=== PATIENT | female | born 1990 | race Hispanic/Latino ===

== ENCOUNTER → 2022-01-10 | Outpatient (CLI) | payer OTHER, MEDICARE ==
[~2022-01-10] MED LIST: GADOTERATE MEGLUMINE 10 MMOL/20 ML VIAL IV ONE
== END | disposition home or self-care (01) ==
LOC: RAH 07:44
PROVIDERS: ATTEND Internal Medicine Medical Oncology
DX: N60.21 Fibroadenosis of right breast (principal)
CPT/HCPCS: C8908; A9575; 77049

== ENCOUNTER 2022-03-11 13:32 | Emergency (ER) | payer OTHER, MEDICARE ==
[~2022-03-11] VITALS: Ht 170.2 cm; Wt 117.9 kg
[2022-03-11 15:11] VITALS: BP 126/77
[2022-03-11 16:01] LABS: APPEARANCE,URINE CLEAR (CLEAR); BILIRUBIN,URINE NEGATIVE (NEGATIVE); COLOR,URINE LIGHT-YELLOW (YELLOW); GLUCOSE, URINE (UA) 50 mg/dL (NEGATIVE); KETONES,URINE NEGATIVE (NEGATIVE); LEUKOCYTE ESTERASE ,URINE 75 Leu/uL (NEGATIVE); NITRATE,URINE NEGATIVE (NEGATIVE); OCCULT BLOOD,URINE NEGATIVE (NEGATIVE); PROTEIN,URINE NEGATIVE (NEGATIVE); UROBILINOGEN,URINE 0.2 mg/dL (0.2-1.0)
[2022-03-11] MEDS: 0.9% NACL 500ML IV.SOLN 500 ML IV ONE (16:05)
[2022-03-11] MEDS: KETOROLAC 15MG/ML VIAL (15MG/ML) IV ONE (16:05)
[2022-03-11] MEDS: ORPHENADRINE CITRATE 30 MG/ML ML IVP ONE (16:05)
[2022-03-11 16:06] LABS: HCG,QUALITATIVE URINE NEGATIVE (NEGATIVE)
[2022-03-11 16:08] LABS: BACTERIA,URINE RARE /HPF (None Seen); MUCUS,URINE RARE LPF (None Seen); RBC,URINE 0-1 /HPF (0-1); SQUAMOUS EPITHELIAL CELL,UR FEW /HPF (0-2)
[2022-03-11] MEDS ORDERED: CYCL10TA16 PO (17:27)
[2022-03-11] MEDS ORDERED: NAPR500T6 PO (17:27)
== END 2022-03-11 17:47 | disposition home or self-care (01) ==
LOC: EDH 13:32
DX: M54.2 Cervicalgia (principal); R51.9 Headache, unspecified; M54.50 Low back pain, unspecified; E11.9 Type 2 diabetes mellitus without complications; M19.90 Unspecified osteoarthritis, unspecified site; Z79.1 Long term (current) use of non-steroidal anti-inflammatories (NSAID); W01.198A Fall on same level from slipping, tripping and stumbling with subsequent striking against other object, initial encounter; Y93.01 Activity, walking, marching and hiking; Y92.89 Other specified places as the place of occurrence of the external cause; Y99.8 Other external cause status
CPT/HCPCS: 99284; 70450; 96374; 96375; 87088; 81001; 81025; 72125; J7040; J1885; J2360; 96361

== ENCOUNTER 2022-08-12 21:28 | Emergency (ER) | payer OTHER, MEDICARE ==
[~2022-08-12 21:28] MED LIST changes: +CYCL10TA16 PO; -GADOTERATE MEGLUMINE 10 MMOL/20 ML VIAL IV ONE; +NAPR500T6 PO
[2022-08-12 23:08] LABS: BASOPHILS % (AUTO) 0.3 % (0.0-5.0); EOSINOPHILS % (AUTO) 1.7 % (0.0-8.0); HEMATOCRIT 33.4 % (36-48); LYMPHOCYTES % (AUTO) 32.5 % (21.0-51.0); MEAN CORPUSCULAR HEMOGLOBIN 25.2 pg (27.0-33.0); MEAN CORPUSCULAR HGB CONC 31.1 g/dL (32.0-36.0); MEAN CORPUSCULAR VOLUME 80.9 fL (79-99); MONOCYTES % (AUTO) 3.2 % (3.0-13.0); NEUTROPHILS % (AUTO) 61.5 % (40.0-77.0); PLATELET COUNT (AUTO) 294 K/uL (130-400); RED BLOOD CELL COUNT(AUTO) 4.13 MIL/uL (4.00-5.50); RED CELL DISTRIBUTION WIDTH 16.3 % (11.0-15.5); WHITE BLOOD COUNT (AUTO) 9.7 K/uL (4.8-10.8)
[2022-08-12 23:19] LABS: CARBON DIOXIDE 23 mmol/L (21-32); CHLORIDE 101 mmol/L (101-111); CREATININE 0.6 mg/dL (0.5-1.5); GLOMERULAR FILTR. RATE CALC 122 mL/min (>90); GLUCOSE,RANDOM 164 mg/dL (70-105); POTASSIUM 3.8 mmol/L (3.5-5.1); SODIUM SERUM 134 mmol/L (136-145); UREA NITROGEN, BLOOD 1 mg/dL (7-18)
[2022-08-12 23:26] LABS: ALANINE AMINOTRANSFERASE 27 U/L (12-78); ALBUMIN 3.3 g/dL (3.5-5.0); ASPARTATE AMINOTRANSFERASE 12 U/L (10-37); INR 0.96 (0.85-1.15); PROTHROMBIN TIME 10.5 SEC (9.6-11.6); TOTAL PROTEIN, SERUM 7.2 g/dL (6.0-8.3)
[2022-08-12 23:27] LABS: ACETAMINOPHEN < 1 mcg/mL (10-30); PARTIAL THROMBOPLASTIN TIME 26.8 SEC (26.3-35.5); SALICYLATE < 2.8 mg/dL (2.8-20.0)
[2022-08-12 23:38] LABS: B-TYPE NATRIURETIC PEPTIDE 21 pg/mL (0-100)
[2022-08-13] MEDS ORDERED: IBUP-1493 PO (05:32)
[2022-08-13 07:42] LABS: APPEARANCE,URINE CLOUDY (CLEAR); BILIRUBIN,URINE NEGATIVE (NEGATIVE); COLOR,URINE LIGHT-BROWN (YELLOW); GLUCOSE, URINE (UA) NEGATIVE (NEGATIVE); KETONES,URINE NEGATIVE (NEGATIVE); LEUKOCYTE ESTERASE ,URINE 500 Leu/uL (NEGATIVE); NITRATE,URINE NEGATIVE (NEGATIVE); OCCULT BLOOD,URINE LARGE (NEGATIVE); PH,URINE 5.5 (5.0-8.0); PROTEIN,URINE 50 mg/dL (NEGATIVE); UROBILINOGEN,URINE 0.2 mg/dL (0.2-1.0)
[2022-08-13 07:45] LABS: HCG,QUALITATIVE URINE NEGATIVE (NEGATIVE)
[2022-08-13 07:47] LABS: BACTERIA,URINE RARE /HPF (None Seen); MUCUS,URINE RARE LPF (None Seen); RBC,URINE 51-100 /HPF (0-1); SQUAMOUS EPITHELIAL CELL,UR MOD /HPF (0-2); WBC,URINE TNTC /HPF (0-1); YEAST,URINE BUDDING RARE /HPF (None Seen)
[2022-08-13] MEDS ORDERED: KETOROLAC 30MG VIAL (30MG/ML) IVP ONE (08:00)
[2022-08-13] MEDS ORDERED: DIAZEPAM 5 MG/ML 2 ML SYG IVP ONE (08:00)
[2022-08-13] MEDS ORDERED: FAMOTIDINE 20MG VIAL IV ONE (08:00)
[2022-08-13] MEDS ORDERED: METOCLOPRAMIDE 10 MG/2 ML VIAL IVP ONE (08:00)
[2022-08-13 08:20] LABS: AMPHET/METH SCREEN,URINE NEGATIVE (NEGATIVE); BARBITURATE SCREEN, URINE NEGATIVE (NEGATIVE); BENZODIAZEPINES SCREEN,URINE POSITIVE (NEGATIVE); CANNABINOID SCREEN,URINE POSITIVE (NEGATIVE); COCAINE SCREEN,URINE POSITIVE (NEGATIVE); OPIATE SCREEN,URINE NEGATIVE (NEGATIVE); PHENCYCLIDINE SCREEN,URINE NEGATIVE (NEGATIVE)
[2022-08-13] MEDS ORDERED: MECLIZINE HCL 25 MG TABLET PO ONE (09:00)
[2022-08-13] MEDS ORDERED: CEPH500B PO (09:49)
[2022-08-13 09:51] VITALS: BP 109/74
[2022-08-13] MEDS ORDERED: CEPHALEXIN 500 MG CAPSULE PO ONE (10:00)
== END 2022-08-13 10:05 | disposition home or self-care (01) ==
LOC: EDH 21:28
DX: N39.0 Urinary tract infection, site not specified (principal); R51.9 Headache, unspecified; M54.18 Radiculopathy, sacral and sacrococcygeal region; M54.50 Low back pain, unspecified; M62.838 Other muscle spasm; F14.10 Cocaine abuse, uncomplicated; F12.10 Cannabis abuse, uncomplicated; F41.9 Anxiety disorder, unspecified; M19.90 Unspecified osteoarthritis, unspecified site; F17.210 Nicotine dependence, cigarettes, uncomplicated; Z79.1 Long term (current) use of non-steroidal anti-inflammatories (NSAID)
CPT/HCPCS: 99284; 71045; 84484; 80053; 83880; 80305; 85025; 85610; 85730; 87088; 81001; 81025; 36415 ×2; 93005; 70450; 96374; 96375; 72131; 72192; G0481; J3490; J3360; J1885; J2765